=== PATIENT | male | born 1960 | race Caucasian/White ===

== ENCOUNTER 2017-07-26 05:31 | Inpatient (IN) | payer BC ==
[2017-07-23 13:53] LABS: BASOPHILS % (AUTO) 0.5 % (0-1); EOSINOPHILS # (AUTO) 0.1 X10'3 (0-0.9); EOSINOPHILS % (AUTO) 2.2 % (0-6); LYMPHOCYTES # (AUTO) 2.6 X10'3 (1.1-4.8); LYMPHOCYTES % (AUTO) 41.6 % (21-51); MEAN CORPUSCULAR HEMOGLOBIN 31.6 PG (27.0-31.0); MEAN CORPUSCULAR HGB CONC 35.2 % (33.0-36.5); MEAN CORPUSCULAR VOLUME 89.7 FL (78-98); MEAN PLATELET VOLUME 8.3 FL (7.4-10.4); MONOCYTES # (AUTO) 0.4 X10'3 (0-0.9); MONOCYTES % (AUTO) 6.8 % (2-12); NEUTROPHILS # (AUTO) 3.1 X10'3 (1.8-7.7); NEUTROPHILS % (AUTO) 48.9 % (42-75); PRE OP HEMATOCRIT 41.8 % (42.0-52.0); PRE OP HEMOGLOBIN 14.7 g/dL (14.0-17.9); PRE OP PLATELET COUNT 187 X10'3 (140-440); RED BLOOD COUNT 4.65 X10'6 (4.70-6.10); RED CELL DISTRIBUTION WIDTH 12.9 % (11.5-14.5)
[2017-07-23 13:55] LABS: CLARITY,URINE CLEAR (Clear); COLOR,URINE YELLOW (Yellow); GLUCOSE, URINE NEGATIVE (Neg); KETONES,URINE NEGATIVE (Neg); LEUKOCYTE ESTERASE ,URINE NEGATIVE (Neg); NITRITES, URINE NEGATIVE (Neg); OCCULT BLOOD,URINE TRACE-INTACT (Neg); PROTEIN,URINE NEGATIVE (Neg); UROBILINOGEN,URINE 0.2 E.U/dL (0.2-1.0)
[2017-07-23 13:58] LABS: UA COLLECTION TYPE VOIDED
[2017-07-23 14:01] LABS: HEMOGLOBIN A1C 5.8 % (4.5-6.2); PRE OP INR 0.9 INR; PRE OP PROTIME 9.8 SECONDS (9.0-12.0)
[2017-07-23 14:04] LABS: ALBUMIN 4.2 G/DL (3.4-5.0); ALBUMIN/GLOBULIN RATIO 1.2 (1.1-1.5); ALKALINE PHOSPHATASE 70 IU/L (46-116); BLOOD UREA NITROGEN 16 MG/DL (7-18); BUN/CREATININE RATIO 17.6 (5.4-32.0); CHLORIDE 105 MMOL/L (99-107); CREATININE 0.91 MG/DL (0.60-1.10); PRE OP ALT 44 U/L (30-65); PRE OP ANION GAP 7 (8-16); PRE OP AST 20 U/L (10-37); PRE OP BILIRUB, TOTAL 0.9 MG/DL (0.0-1.0); PRE OP GLUCOSE 108 MG/DL (70-104); PRE OP POTASSIUM 3.9 MMOL/L (3.4-5.1); PRE OP SODIUM 139 MMOL/L (135-145); TOTAL CARBON DIOXIDE 26.7 MMOL/L (24-32); TOTAL PROTEIN 7.7 G/DL (6.4-8.2); eGFR 86 ML/MIN
[2017-07-23 14:04] LABS: BACTERIA,URINE NONE SEEN /HPF (Neg); RBC,URINE 0-2 /HPF (0-2); WBC,URINE NONE SEEN /HPF (0-4)
[2017-07-23 14:05] LABS: MUCUS STRANDS MODERATE /LPF (Neg); SQUAMOUS EPITHELIAL CELL,UR NONE SEEN /LPF (FEW)
[2017-07-26] VITALS (24 sets, daily range): BP systolic 98–147; BP diastolic 40–72
[~2017-07-26] VITALS: Ht 182.9 cm; Wt 107.3 kg
[~2017-07-26 05:31] MED LIST: ATOR40TA PO; CHOL10002 PO; Cefazolin 2GM/100ML NS IVPB IV ONE; GLUC100017 PO; LORazepam 2 mg/ml vial IV PRN; MULT-1142 PO; [UNRECOGNIZED DRUG - CODE] PO; dextrose 50%-water 50ml dispensing syringe IV PRN; diazepam 5mg tablet PO PRN; famotidine 20mg tablet PO ONE; insulin Lispro (HumaLOG) vial - multi-dose SQ SCH; ringers solution, lacted 1,000 ML IV SCH; vancomycin inj 1,500 MG in normal saline 300ml IV soln IV ONE
[2017-07-26] MEDS ORDERED: LIDOcaine 1% (10mg/ml) 2ml vial ONE (05:48)
[2017-07-26] MEDS ORDERED: papaverine 30 mg/ml 2ml inj. IA ONE (07:00)
[2017-07-26] MEDS ORDERED: MIDAZolam 1mg/ml 10ml vial ONE (07:04)
[2017-07-26] MEDS ORDERED: SUFENTANIL CITRATE 50 MCG/ML 2ml ampule IV ONE (07:05)
[2017-07-26] MEDS: mupirocin 2% nasal ointment 1gm UD NS SCH ×3 (07:06→20:24)
[2017-07-26] MEDS ORDERED: phenylephrine 10mg/ml inj IV ONE ×2 (07:06→07:16)
[2017-07-26] MEDS ORDERED: LIDOcaine 2% (20mg/ml) 5ml vial ONE (07:06)
[2017-07-26] MEDS ORDERED: propofol inj 20 ML IV ONE (07:06)
[2017-07-26] MEDS ORDERED: pancuronium br 1mg/ml inj IV ONE (07:06)
[2017-07-26] MEDS ORDERED: sevoflurane 250ml liquid IH ONE (07:16)
[2017-07-26] MEDS ORDERED: protamine sulf. 10mg/ml inj. IV ONE (07:16)
[2017-07-26] MEDS ORDERED: aminocaproic acid 250 MG/1 ML inj. ONE (07:16)
[2017-07-26 08:15] LABS: ABG BASE EXCESS -2.6 mmol/L (-2.0-3.0); ABG HCO3 21.3 mmol/L (22.0-26.0); ABG OXYGEN SATURATION 99.4 % (95-98); ABG PCO2 34.1 mmHg (35.0-45.0); ABG PH 7.413 (7.350-7.450); ABG PO2 517.9 mmHg (60.0-100.0); CL (ABG) 106 mmol/L (99-107); FCOHb 0.3 % (0.5-1.5); FMetHb 0.3 % (0.3-1.12); FO2Hb 98.8 % (94-100); GLUCOSE (ABG) 120 mg/dl (70-105); IONIZED CA (ABG) 1.12 mmol/L (1.03-1.32); NA (ABG) 135 mmol/L (135-145); TOTAL HEMOGLOBIN 13.5 G/dl (14.0-18.0)
[2017-07-26 08:26] LABS: ACT @ 1.70 U 304 SEC (193-297); ACT @ 2.84 U 444 SEC (260-420); BASELINE ACT 149 SEC (101-148)
[2017-07-26 09:40] LABS: ABG BASE EXCESS 0.8 mmol/L (-2.0-3.0); ABG HCO3 25.9 mmol/L (22.0-26.0); ABG PH 7.397 (7.350-7.450); ABG PO2 214.4 mmHg (60.0-100.0); CL (ABG) 105 mmol/L (99-107); FCOHb 0.2 % (0.5-1.5); FMetHb 0.1 % (0.3-1.12); FO2Hb 98.7 % (94-100); GLUCOSE (ABG) 163 mg/dl (70-105); IONIZED CA (ABG) 1.02 mmol/L (1.03-1.32); K (ABG) 6.1 mmol/L (3.3-5.1); NA (ABG) 132 mmol/L (135-145); TOTAL HEMOGLOBIN 11.1 G/dl (14.0-18.0)
[2017-07-26 10:05] LABS: ABG BASE EXCESS VENOUS -1.1 mmol/L; ABG HCO3 VENOUS 24.6 mmol/L; ABG PCO2 VENOUS 45.3 mmHg; ABG PO2 VENOUS 46.1 mmHg; CL (ABG) 105 mmol/L (99-107); FCOHb VENOUS 0.2 %; FHHb VENOUS 18.7 %; FMetHb VENOUS 0.6 %; FO2Hb VENOUS 80.5 %; GLUCOSE (ABG) 171 mg/dl (70-105); IONIZED CA (ABG) 1.06 mmol/L (1.03-1.32); NA (ABG) 132 mmol/L (135-145); TOTAL HEMOGLOBIN 12.2 G/dl (14.0-18.0)
[2017-07-26 10:25] LABS: ABG BASE EXCESS -1.5 mmol/L (-2.0-3.0); ABG HCO3 22.5 mmol/L (22.0-26.0); ABG OXYGEN SATURATION 98.8 % (95-98); ABG PCO2 35.7 mmHg (35.0-45.0); ABG PH 7.418 (7.350-7.450); ABG PO2 211.6 mmHg (60.0-100.0); CL (ABG) 106 mmol/L (99-107); FMetHb 0.5 % (0.3-1.12); FO2Hb 98.3 % (94-100); GLUCOSE (ABG) 168 mg/dl (70-105); IONIZED CA (ABG) 1.03 mmol/L (1.03-1.32); K (ABG) 5.7 mmol/L (3.3-5.1); NA (ABG) 132 mmol/L (135-145); TOTAL HEMOGLOBIN 11.9 G/dl (14.0-18.0)
[2017-07-26 10:45] LABS: ABG BASE EXCESS 1.2 mmol/L (-2.0-3.0); ABG HCO3 26.5 mmol/L (22.0-26.0); ABG OXYGEN SATURATION 98.3 % (95-98); ABG PCO2 45.3 mmHg (35.0-45.0); ABG PH 7.385 (7.350-7.450); ABG PO2 175.4 mmHg (60.0-100.0); CL (ABG) 105 mmol/L (99-107); FCOHb 0.3 % (0.5-1.5); FMetHb 0.6 % (0.3-1.12); FO2Hb 97.4 % (94-100); GLUCOSE (ABG) 154 mg/dl (70-105); IONIZED CA (ABG) 1.39 mmol/L (1.03-1.32); K (ABG) 5.2 mmol/L (3.3-5.1); NA (ABG) 129 mmol/L (135-145); TOTAL HEMOGLOBIN 10.3 G/dl (14.0-18.0)
[2017-07-26 11:05] LABS: ABG HCO3 24.8 mmol/L (22.0-26.0); ABG PCO2 (T) 37.1 mmHg (35.0-48.0); ABG PH (T) 7.443 (7.350-7.450); ALLEN'S TEST Positive; FCOHb 0.7 % (0.5-1.5); FMetHb 0.2 % (0.3-1.12); FO2Hb 96.1 % (94-100); TOTAL HEMOGLOBIN 15.2 G/dl (14.0-18.0)
[2017-07-26 11:06] LABS: ABG HCO3 VENOUS 24.7 mmol/L; ABG PCO2 VENOUS 45.2 mmHg; ABG PO2 VENOUS 40.9 mmHg; CL (ABG) 106 mmol/L (99-107); FCOHb VENOUS 0.4 %; FHHb VENOUS 25.3 %; FMetHb VENOUS 0.5 %; FO2Hb VENOUS 73.8 %; GLUCOSE (ABG) 147 mg/dl (70-105); IONIZED CA (ABG) 1.21 mmol/L (1.03-1.32); K (ABG) 4.6 mmol/L (3.3-5.1); NA (ABG) 133 mmol/L (135-145); TOTAL HEMOGLOBIN 11.3 G/dl (14.0-18.0)
[2017-07-26 11:31] LABS: ABG HCO3 VENOUS 23.9 mmol/L; ABG PCO2 VENOUS 45.1 mmHg; ABG PO2 VENOUS 45.7 mmHg; CL (ABG) 108 mmol/L (99-107); FCOHb VENOUS 0.6 %; FHHb VENOUS 20.5 %; FMetHb VENOUS 0.6 %; FO2Hb VENOUS 78.3 %; GLUCOSE (ABG) 130 mg/dl (70-105); IONIZED CA (ABG) 1.18 mmol/L (1.03-1.32); K (ABG) 4.2 mmol/L (3.3-5.1); NA (ABG) 135 mmol/L (135-145); TOTAL HEMOGLOBIN 13.4 G/dl (14.0-18.0)
[2017-07-26] MEDS ORDERED: albumin (Human) 5% 250ml 250 ML IV ONE (11:33)
[2017-07-26] MEDS ORDERED: nitroGLYCERIN-Tridil 50MG/D5W 250 ML IV PRN (11:43)
[2017-07-26] MEDS ORDERED: niCARDipine/sod cl 20mg/200ml 200 ML IV PRN (11:43)
[2017-07-26] MEDS ORDERED: DOPamine 400mg/D5W 250ml 250 ML IV PRN (11:43)
[2017-07-26] MEDS ORDERED: sodium chloride 0.45% 1,000 ML IV SCH (11:43)
[2017-07-26] MEDS ORDERED: acetaminophen 325mg tablet PO PRN (11:45)
[2017-07-26] MEDS ORDERED: dextrose 50%-water 50ml dispensing syringe IV PRN (11:45)
[2017-07-26] MEDS ORDERED: sodium phosphate inj. 15 MMOL in dextrose 5%-water 150 ML IV PRN (11:45)
[2017-07-26] MEDS ORDERED: insulin regular, human inj. 100 UNITS in normal saline 100ml IV soln 100 ML IV SCH ×2 (11:45)
[2017-07-26] MEDS ORDERED: normal saline 250ml IV soln 250 ML IV PRN (11:45)
[2017-07-26] MEDS ORDERED: sodium phosphate inj. 30 MMOL in dextrose 5%-water 250 ML IV PRN (11:45)
[2017-07-26] MEDS ORDERED: ondansetron/PF 4mg/2ml inj IV PRN (11:45)
[2017-07-26] MEDS ORDERED: morphine 4 MG/ML inj SYRINge IV PRN (11:45)
[2017-07-26] MEDS ORDERED: potassium Cl 20mEq/100mL bag 100 ML IV PRN (11:45)
[2017-07-26] MEDS ORDERED: magnesium 2GM in 50ml NS 50 ML IV PRN (11:45)
[2017-07-26] MEDS ORDERED: HYDROcodone/acetaminophen 10/325mg tab PO PRN (11:45)
[2017-07-26] MEDS ORDERED: metoclopramide 5 mg/ml inj IV PRN (11:45)
[2017-07-26] MEDS ORDERED: magnesium hydroxide 30ml (MOM) UD suspension PO PRN (11:45)
[2017-07-26] MEDS ORDERED: Neutra Phos packet PO PRN (11:45)
[2017-07-26] MEDS ORDERED: magnesium 4gm in 100ml NS 100 ML IV PRN (11:45)
[2017-07-26 12:10] LABS: ABG BASE EXCESS -2.6 mmol/L (-2.0-3.0); ABG HCO3 23.2 mmol/L (22.0-26.0); ABG OXYGEN SATURATION 98.3 % (95-98); ABG PCO2 (T) 40.7 mmHg (35.0-48.0); ABG PH (T) 7.366 (7.350-7.450); ABG PO2 (T) 147.4 mmHg (83-108); FCOHb 0.3 % (0.5-1.5); FMetHb 0.2 % (0.3-1.12); FO2Hb 97.8 % (94-100); MINUTE VOLUME 9 L/min; PATIENT TEMPERATURE 35.4; PEEP 5 cm H2O; RESPIRATORY RATE 12 b/min; RESPIRATORY RATE (OBSERVED) 12 b/min; TIDAL VOLUME 650 mL; TOTAL HEMOGLOBIN 12.5 G/dl (14.0-18.0)
[2017-07-26 12:16] LABS: BASOPHILS % (AUTO) 0.2 % (0-1); EOSINOPHILS # (AUTO) 0.2 X10'3 (0-0.9); EOSINOPHILS % (AUTO) 1.8 % (0-6); HEMATOCRIT 33.6 % (42.0-52.0); HEMOGLOBIN 11.9 g/dl (14.0-17.9); MEAN CORPUSCULAR HGB CONC 35.3 % (33.0-36.5); MEAN CORPUSCULAR VOLUME 90.6 FL (78-98); MEAN PLATELET VOLUME 7.9 FL (7.4-10.4); MONOCYTES # (AUTO) 0.2 X10'3 (0-0.9); PLATELET COUNT 103 X10'3 (140-440); RED CELL DISTRIBUTION WIDTH 13.1 % (11.5-14.5); WHITE BLOOD COUNT 10.4 X10'3 (4.5-11.0)
[2017-07-26 12:21] LABS: ACTIVATED CLOTTING TIME 136 SEC (101-148)
[2017-07-26 12:21] LABS: ACTIVATED CLOTTING TIME 119 SEC (101-148)
[2017-07-26 12:27] LABS: INR 1.2 INR; PARTIAL THROMBOPLASTIN TIME 45 SECONDS (22-32); PROTHROMBIN TIME 11.9 SECONDS (9.0-12.0)
[2017-07-26 12:30] LABS: ALANINE AMINOTRANSFERASE 28 U/L (12-78); ALBUMIN 3.2 G/DL (3.4-5.0); ALKALINE PHOSPHATASE 45 IU/L (46-116); ASPARTATE AMINO TRANSFERASE 25 U/L (10-37); BLOOD UREA NITROGEN 13 MG/DL (7-18); CALCIUM 7.8 MG/DL (8.5-10.1); GLUCOSE 113 MG/DL (70-104); MAGNESIUM 3.1 MG/DL (1.5-2.4); PHOSPHORUS 2.1 MG/DL (2.3-4.5); eGFR 77 ML/MIN
[2017-07-26 12:36] LABS: ALBUMIN/GLOBULIN RATIO 1.7 (1.1-1.5); ANION GAP 8 (8-16); BILIRUBIN,TOTAL 0.9 MG/DL (0.1-1.0); CHLORIDE 109 MMOL/L (99-107); POTASSIUM 3.7 MMOL/L (3.5-5.1); SODIUM 142 MMOL/L (135-145); TOTAL CARBON DIOXIDE 25.4 MMOL/L (24-32); TOTAL PROTEIN 5.1 G/DL (6.4-8.2)
[2017-07-26] MEDS: insulin Lispro (HumaLOG) vial - multi-dose SQ SCH ×2 (12:48→17:38)
[2017-07-26] MEDS: morphine 4 MG/ML inj SYRINge IV PRN ×3 (13:14→18:36)
[2017-07-26] MEDS ORDERED: propofol 1000mg/100ml bottle 100 ML IV ONE (13:17)
[2017-07-26 13:30] LABS: BASOPHILS % (AUTO) 0.2 % (0-1); EOSINOPHILS # (AUTO) 0.2 X10'3 (0-0.9); EOSINOPHILS % (AUTO) 1.5 % (0-6); HEMATOCRIT 29.5 % (42.0-52.0); HEMOGLOBIN 10.3 g/dl (14.0-17.9); LYMPHOCYTES # (AUTO) 1.8 X10'3 (1.1-4.8); LYMPHOCYTES % (AUTO) 12.2 % (21-51); MEAN CORPUSCULAR HEMOGLOBIN 31.8 PG (27.0-31.0); MEAN CORPUSCULAR VOLUME 90.7 FL (78-98); MEAN PLATELET VOLUME 7.8 FL (7.4-10.4); MONOCYTES # (AUTO) 0.4 X10'3 (0-0.9); MONOCYTES % (AUTO) 2.5 % (2-12); NEUTROPHILS # (AUTO) 12.1 X10'3 (1.8-7.7); NEUTROPHILS % (AUTO) 83.6 % (42-75); PLATELET COUNT 134 X10'3 (140-440); RED BLOOD COUNT 3.25 X10'6 (4.70-6.10); RED CELL DISTRIBUTION WIDTH 13.2 % (11.5-14.5); WHITE BLOOD COUNT 14.4 X10'3 (4.5-11.0)
[2017-07-26 13:45] LABS: PARTIAL THROMBOPLASTIN TIME 37 SECONDS (22-32); PROTHROMBIN TIME 10.7 SECONDS (9.0-12.0)
[2017-07-26] MEDS: albumin (Human) 5% 250ml 250 ML IV PRN ×3 (13:55→16:43)
[2017-07-26] MEDS: insulin regular, human 100 UNITS in normal saline 100ml IV soln 99 ML IV SCH ×4 (13:57→21:07)
[2017-07-26] MEDS: ketorolac tromethamine 15mg/ml inj. IV SCH ×2 (14:00→20:00)
[2017-07-26] MEDS: potassium Cl 20mEq/100mL bag 100 ML IV PRN ×4 (14:08→18:57)
[2017-07-26] MEDS ORDERED: NORepinephrine 8mg/ 250ml NS 250 ML IV SCH (15:10)
[2017-07-26 16:16] LABS: ABG BASE EXCESS -5.6 mmol/L (-2.0-3.0); ABG HCO3 20.8 mmol/L (22.0-26.0); ABG OXYGEN SATURATION 97.8 % (95-98); ABG PCO2 (T) 44.3 mmHg (35.0-48.0); ABG PH (T) 7.289 (7.350-7.450); ABG PO2 (T) 143.8 mmHg (83-108); FCOHb 0.2 % (0.5-1.5); FMetHb 0.3 % (0.3-1.12); FO2Hb 97.3 % (94-100); MINUTE VOLUME 9 L/min; PATIENT TEMPERATURE 36.9; PEEP 5 cm H2O; TOTAL HEMOGLOBIN 10.2 G/dl (14.0-18.0)
[2017-07-26] MEDS: ceFAZolin inj. 1,000 MG in normal saline 100ml IV soln 100 ML IV SCH (16:44)
[2017-07-26 17:06] LABS: ABG BASE EXCESS -5.1 mmol/L (-2.0-3.0); ABG HCO3 18.7 mmol/L (22.0-26.0); ABG OXYGEN SATURATION 97.9 % (95-98); ABG PCO2 (T) 30.3 mmHg (35.0-48.0); ABG PH (T) 7.409 (7.350-7.450); ABG PO2 (T) 139.9 mmHg (83-108); FCOHb 0.2 % (0.5-1.5); FMetHb 0.1 % (0.3-1.12); FO2Hb 97.6 % (94-100); MINUTE VOLUME 13 L/min; PEEP 5 cm H2O; TOTAL HEMOGLOBIN 9.6 G/dl (14.0-18.0)
[2017-07-26 17:21] LABS: BASOPHILS % (AUTO) 0 % (0-1); EOSINOPHILS % (AUTO) 0 % (0-6); HEMATOCRIT 25.7 % (42.0-52.0); LYMPHOCYTES # (AUTO) 0.6 X10'3 (1.1-4.8); LYMPHOCYTES % (AUTO) 4.6 % (21-51); MEAN CORPUSCULAR HEMOGLOBIN 31.6 PG (27.0-31.0); MEAN CORPUSCULAR HGB CONC 34.9 % (33.0-36.5); MEAN CORPUSCULAR VOLUME 90.5 FL (78-98); MEAN PLATELET VOLUME 7.9 FL (7.4-10.4); MONOCYTES # (AUTO) 0.2 X10'3 (0-0.9); NEUTROPHILS # (AUTO) 11.2 X10'3 (1.8-7.7); NEUTROPHILS % (AUTO) 93.4 % (42-75); PLATELET COUNT 124 X10'3 (140-440); RED BLOOD COUNT 2.84 X10'6 (4.70-6.10); RED CELL DISTRIBUTION WIDTH 12.9 % (11.5-14.5)
[2017-07-26] MEDS ORDERED: sodium bicarbonate (8.4%) 1 mEq/ml syringe IV ONE (17:25)
[2017-07-26 17:35] LABS: ALBUMIN 3.6 G/DL (3.4-5.0); ANION GAP 13 (8-16); BLOOD UREA NITROGEN 14 MG/DL (7-18); BUN/CREATININE RATIO 12.3 (5.4-32.0); CALCIUM 7.7 MG/DL (8.5-10.1); CHLORIDE 111 MMOL/L (99-107); CREATININE 1.14 MG/DL (0.60-1.10); GLUCOSE 153 MG/DL (70-104); POTASSIUM 3.7 MMOL/L (3.5-5.1); SODIUM 145 MMOL/L (135-145); TOTAL CARBON DIOXIDE 20.6 MMOL/L (24-32); eGFR 66 ML/MIN
[2017-07-26 17:55] LABS: MAGNESIUM 2.3 MG/DL (1.5-2.4)
[2017-07-26] MEDS: docusate sod 100mg capsule PO SCH (20:00)
[2017-07-26] MEDS: vancomycin/NS 1 GM ADD-VANTAGE 250 ML IV SCH (20:24)
[2017-07-26] MEDS: vitamin D (cholecalciferol) 1,000 unit tablet PO SCH (21:00)
[2017-07-27] VITALS (24 sets, daily range): BP systolic 95–144; BP diastolic 41–68
[2017-07-27] MEDS: ceFAZolin inj. 1,000 MG in normal saline 100ml IV soln 100 ML IV SCH ×3 (00:20→16:10)
[2017-07-27] MEDS: insulin regular, human 100 UNITS in normal saline 100ml IV soln 99 ML IV SCH ×8 (00:26→07:20)
[2017-07-27] MEDS: potassium Cl 20mEq/100mL bag 100 ML IV PRN ×2 (00:29→05:30)
[2017-07-27] MEDS: ketorolac tromethamine 15mg/ml inj. IV SCH ×2 (01:09→07:28)
[2017-07-27 04:26] LABS: BASOPHILS % (AUTO) 0 % (0-1); EOSINOPHILS % (AUTO) 0 % (0-6); HEMATOCRIT 23.4 % (42.0-52.0); HEMOGLOBIN 8.3 g/dl (14.0-17.9); LYMPHOCYTES # (AUTO) 0.7 X10'3 (1.1-4.8); LYMPHOCYTES % (AUTO) 5.6 % (21-51); MEAN CORPUSCULAR HEMOGLOBIN 31.9 PG (27.0-31.0); MEAN CORPUSCULAR HGB CONC 35.4 % (33.0-36.5); MEAN CORPUSCULAR VOLUME 90.3 FL (78-98); MONOCYTES # (AUTO) 0.5 X10'3 (0-0.9); MONOCYTES % (AUTO) 4.1 % (2-12); NEUTROPHILS # (AUTO) 10.7 X10'3 (1.8-7.7); NEUTROPHILS % (AUTO) 90.3 % (42-75); PLATELET COUNT 105 X10'3 (140-440); RED BLOOD COUNT 2.59 X10'6 (4.70-6.10); RED CELL DISTRIBUTION WIDTH 13.2 % (11.5-14.5); WHITE BLOOD COUNT 11.8 X10'3 (4.5-11.0)
[2017-07-27 04:37] LABS: PARTIAL THROMBOPLASTIN TIME 25 SECONDS (22-32)
[2017-07-27 04:40] LABS: ALANINE AMINOTRANSFERASE 28 U/L (12-78); ALBUMIN 3.4 G/DL (3.4-5.0); ALBUMIN/GLOBULIN RATIO 1.5 (1.1-1.5); ALKALINE PHOSPHATASE 32 IU/L (46-116); ANION GAP 10 (8-16); ASPARTATE AMINO TRANSFERASE 43 U/L (10-37); BILIRUBIN,TOTAL 0.7 MG/DL (0.1-1.0); BLOOD UREA NITROGEN 15 MG/DL (7-18); BUN/CREATININE RATIO 15.5 (5.4-32.0); CALCIUM 7.9 MG/DL (8.5-10.1); CHLORIDE 109 MMOL/L (99-107); CREATININE 0.97 MG/DL (0.60-1.10); GLUCOSE 129 MG/DL (70-104); MAGNESIUM 2.5 MG/DL (1.5-2.4); PHOSPHORUS 3.8 MG/DL (2.3-4.5); POTASSIUM 4.1 MMOL/L (3.5-5.1); SODIUM 143 MMOL/L (135-145); TOTAL CARBON DIOXIDE 24.3 MMOL/L (24-32); TOTAL PROTEIN 5.6 G/DL (6.4-8.2); eGFR 80 ML/MIN
[2017-07-27] MEDS: pantoprazole 40mg Tablet.DR PO SCH (07:27)
[2017-07-27] MEDS: multivitamins, therapeutics tablet PO SCH (07:27)
[2017-07-27] MEDS: aspirin 325mg tablet, delayed-release (Ecotrin) PO SCH (07:27)
[2017-07-27] MEDS: docusate sod 100mg capsule PO SCH ×2 (07:27→19:05)
[2017-07-27] MEDS: mupirocin 2% nasal ointment 1gm UD NS SCH ×2 (07:28→19:05)
[2017-07-27] MEDS: metoprolol tartrate 12.5mg (1/2 tablet) PO SCH ×2 (07:29→20:00)
[2017-07-27] MEDS ORDERED: atorvastatin 10mg tablet PO SCH (08:00)
[2017-07-27] MEDS: vancomycin/NS 1 GM ADD-VANTAGE 250 ML IV SCH ×2 (08:25→19:05)
[2017-07-27] MEDS: insulin Lispro (HumaLOG) vial - multi-dose SQ SCH (08:53)
[2017-07-27] MEDS: HYDROcodone/acetaminophen 10/325mg tab PO PRN ×2 (09:37→15:17)
[2017-07-27] MEDS ORDERED: glucagon, human recombinant 1mg kit SUBCUT PRN (17:35)
[2017-07-27] MEDS ORDERED: insulin Lispro (HumaLOG) vial - multi-dose SQ SCH (17:35)
[2017-07-27] MEDS ORDERED: dextrose ORAL solution 15 GM/59 ML bottle PO PRN ×2 (17:35)
[2017-07-27] MEDS ORDERED: MESSAGE TO PHARMACY PO ONE (17:35)
[2017-07-27] MEDS ORDERED: dextrose 50%-water 50ml dispensing syringe IV PRN ×2 (17:35)
[2017-07-27] MEDS: lactobacillus rhamnosus 10,000 MMU CELLS/CAPSULE PO SCH (19:05)
[2017-07-27] MEDS ORDERED: insulin glargine (Lantus) pen - multi-dose SQ SCH (21:00)
[2017-07-27] MEDS: vitamin D (cholecalciferol) 1,000 unit tablet PO SCH (21:37)
[2017-07-28] VITALS (24 sets, daily range): BP systolic 90–128; BP diastolic 52–80
[2017-07-28] MEDS: ceFAZolin inj. 1,000 MG in normal saline 100ml IV soln 100 ML IV SCH ×2
[2017-07-28 04:32] LABS: BASOPHILS % (AUTO) 0.1 % (0-1); EOSINOPHILS % (AUTO) 0 % (0-6); HEMATOCRIT 24.2 % (42.0-52.0); HEMOGLOBIN 8.5 g/dl (14.0-17.9); LYMPHOCYTES # (AUTO) 1.2 X10'3 (1.1-4.8); LYMPHOCYTES % (AUTO) 9.2 % (21-51); MEAN CORPUSCULAR HEMOGLOBIN 32.3 PG (27.0-31.0); MEAN CORPUSCULAR HGB CONC 35.1 % (33.0-36.5); MEAN CORPUSCULAR VOLUME 92.1 FL (78-98); MEAN PLATELET VOLUME 8.3 FL (7.4-10.4); MONOCYTES # (AUTO) 0.9 X10'3 (0-0.9); MONOCYTES % (AUTO) 7.2 % (2-12); NEUTROPHILS # (AUTO) 10.9 X10'3 (1.8-7.7); NEUTROPHILS % (AUTO) 83.5 % (42-75); PLATELET COUNT 92 X10'3 (140-440); RED BLOOD COUNT 2.63 X10'6 (4.70-6.10)
[2017-07-28 04:48] LABS: ALBUMIN 3.5 G/DL (3.4-5.0); ANION GAP 7 (8-16); BLOOD UREA NITROGEN 18 MG/DL (7-18); BUN/CREATININE RATIO 20.2 (5.4-32.0); CALCIUM 8.1 MG/DL (8.5-10.1); CHLORIDE 104 MMOL/L (99-107); CREATININE 0.89 MG/DL (0.60-1.10); GLUCOSE 128 MG/DL (70-104); MAGNESIUM 2.3 MG/DL (1.5-2.4); PHOSPHORUS 2.9 MG/DL (2.3-4.5); POTASSIUM 4.4 MMOL/L (3.5-5.1); SODIUM 139 MMOL/L (135-145); TOTAL CARBON DIOXIDE 28.1 MMOL/L (24-32); eGFR 88 ML/MIN
[2017-07-28] MEDS: potassium Cl 20mEq/100mL bag 100 ML IV PRN (05:05)
[2017-07-28] MEDS: HYDROcodone/acetaminophen 10/325mg tab PO PRN ×2 (05:55→15:50)
[2017-07-28] MEDS ORDERED: furosemide 40mg/4ml inj IV ONE (06:40)
[2017-07-28] MEDS ORDERED: potassium Cl 40MEQ/NS 500ml 500 ML IV PRN ×2 (06:45)
[2017-07-28] MEDS ORDERED: potassium Cl 20 mEq SR tablet PO PRN ×2 (06:45)
[2017-07-28] MEDS ORDERED: magnesium 4gm in 100ml NS 100 ML IV PRN (06:45)
[2017-07-28] MEDS ORDERED: magnesium 2GM in 50ml NS 50 ML IV PRN (06:45)
[2017-07-28] MEDS ORDERED: magnesium Cl slow-release 64mg tablet PO PRN (06:45)
[2017-07-28] MEDS: pantoprazole 40mg Tablet.DR PO SCH (07:56)
[2017-07-28] MEDS: aspirin 325mg tablet, delayed-release (Ecotrin) PO SCH (07:56)
[2017-07-28] MEDS: docusate sod 100mg capsule PO SCH ×2 (07:56→21:05)
[2017-07-28] MEDS: lactobacillus rhamnosus 10,000 MMU CELLS/CAPSULE PO SCH ×2 (07:56→20:00)
[2017-07-28] MEDS: multivitamins, therapeutics tablet PO SCH (07:56)
[2017-07-28] MEDS: metoprolol tartrate 12.5mg (1/2 tablet) PO SCH ×2 (08:00→20:00)
[2017-07-28] MEDS: magnesium Cl slow-release 64mg tablet PO SCH ×2 (08:00→21:05)
[2017-07-28] MEDS ORDERED: K and/or MAG REPLACEMENT MC SCH (08:00)
[2017-07-28] MEDS: potassium Cl 20 mEq SR tablet PO SCH ×2 (08:00→21:06)
[2017-07-28] MEDS ORDERED: ceFAZolin/D5W- 1GM premix 50 ML IV SCH ×2 (16:00)
[2017-07-28] MEDS: vitamin D (cholecalciferol) 1,000 unit tablet PO SCH (21:05)
[2017-07-28] MEDS: atorvastatin 20mg tablet PO SCH (21:06)
[2017-07-29] VITALS (16 sets, daily range): BP systolic 86–125; BP diastolic 55–76
[2017-07-29] MEDS: HYDROcodone/acetaminophen 10/325mg tab PO PRN (03:48)
[2017-07-29 04:07] LABS: BASOPHILS % (AUTO) 0.1 % (0-1); EOSINOPHILS # (AUTO) 0.1 X10'3 (0-0.9); EOSINOPHILS % (AUTO) 0.7 % (0-6); HEMATOCRIT 22.6 % (42.0-52.0); HEMOGLOBIN 8.1 g/dl (14.0-17.9); LYMPHOCYTES # (AUTO) 1.7 X10'3 (1.1-4.8); LYMPHOCYTES % (AUTO) 17.3 % (21-51); MEAN CORPUSCULAR HEMOGLOBIN 32.5 PG (27.0-31.0); MEAN CORPUSCULAR HGB CONC 35.5 % (33.0-36.5); MEAN CORPUSCULAR VOLUME 91.4 FL (78-98); MEAN PLATELET VOLUME 8.6 FL (7.4-10.4); MONOCYTES # (AUTO) 0.8 X10'3 (0-0.9); MONOCYTES % (AUTO) 8.2 % (2-12); NEUTROPHILS # (AUTO) 7.4 X10'3 (1.8-7.7); NEUTROPHILS % (AUTO) 73.7 % (42-75); PLATELET COUNT 93 X10'3 (140-440); RED BLOOD COUNT 2.48 X10'6 (4.70-6.10); WHITE BLOOD COUNT 10.1 X10'3 (4.5-11.0)
[2017-07-29 04:18] LABS: ALBUMIN 3.2 G/DL (3.4-5.0); ANION GAP 4 (8-16); BLOOD UREA NITROGEN 16 MG/DL (7-18); BUN/CREATININE RATIO 18.8 (5.4-32.0); CALCIUM 8.3 MG/DL (8.5-10.1); CHLORIDE 104 MMOL/L (99-107); CREATININE 0.85 MG/DL (0.60-1.10); GLUCOSE 130 MG/DL (70-104); MAGNESIUM 1.9 MG/DL (1.5-2.4); SODIUM 139 MMOL/L (135-145); TOTAL CARBON DIOXIDE 30.9 MMOL/L (24-32); eGFR > 90 ML/MIN
[2017-07-29] MEDS: pantoprazole 40mg Tablet.DR PO SCH (07:57)
[2017-07-29] MEDS: potassium Cl 20 mEq SR tablet PO SCH ×2 (07:57→19:44)
[2017-07-29] MEDS: magnesium Cl slow-release 64mg tablet PO SCH ×2 (07:58→19:42)
[2017-07-29] MEDS: lactobacillus rhamnosus 10,000 MMU CELLS/CAPSULE PO SCH ×2 (07:58→19:43)
[2017-07-29] MEDS: docusate sod 100mg capsule PO SCH ×2 (07:58→19:43)
[2017-07-29] MEDS: aspirin 325mg tablet, delayed-release (Ecotrin) PO SCH (07:58)
[2017-07-29] MEDS: multivitamins, therapeutics tablet PO SCH (07:58)
[2017-07-29] MEDS ORDERED: magnesium 2GM in 50ml NS 50 ML IV PRN (08:25)
[2017-07-29] MEDS ORDERED: magnesium 4gm in 100ml NS 100 ML IV PRN (08:25)
[2017-07-29] MEDS ORDERED: potassium Cl 20 mEq SR tablet PO PRN ×2 (08:25)
[2017-07-29] MEDS ORDERED: magnesium Cl slow-release 64mg tablet PO PRN (08:25)
[2017-07-29] MEDS ORDERED: potassium Cl 40MEQ/NS 500ml 500 ML IV PRN ×2 (08:25)
[2017-07-29] MEDS: atorvastatin 20mg tablet PO SCH (19:41)
[2017-07-29] MEDS: vitamin D (cholecalciferol) 1,000 unit tablet PO SCH (19:42)
[2017-07-30 03:00] VITALS: BP 101/50
[2017-07-30 05:22] LABS: BASOPHILS % (AUTO) 0.4 % (0-1); EOSINOPHILS # (AUTO) 0.1 X10'3 (0-0.9); EOSINOPHILS % (AUTO) 1.7 % (0-6); HEMATOCRIT 24.2 % (42.0-52.0); HEMOGLOBIN 8.4 g/dl (14.0-17.9); LYMPHOCYTES # (AUTO) 2.3 X10'3 (1.1-4.8); LYMPHOCYTES % (AUTO) 27.1 % (21-51); MEAN CORPUSCULAR HEMOGLOBIN 31.7 PG (27.0-31.0); MEAN CORPUSCULAR VOLUME 90.6 FL (78-98); MEAN PLATELET VOLUME 7.7 FL (7.4-10.4); MONOCYTES # (AUTO) 0.7 X10'3 (0-0.9); MONOCYTES % (AUTO) 7.8 % (2-12); NEUTROPHILS # (AUTO) 5.3 X10'3 (1.8-7.7); PLATELET COUNT 124 X10'3 (140-440); RED BLOOD COUNT 2.67 X10'6 (4.70-6.10); RED CELL DISTRIBUTION WIDTH 12.8 % (11.5-14.5); WHITE BLOOD COUNT 8.4 X10'3 (4.5-11.0)
[2017-07-30] MEDS: HYDROcodone/acetaminophen 10/325mg tab PO PRN (05:40)
[2017-07-30 06:00] VITALS: BP 93/49
[2017-07-30 06:06] LABS: ALBUMIN 3.1 G/DL (3.4-5.0); ANION GAP 9 (8-16); BLOOD UREA NITROGEN 17 MG/DL (7-18); BUN/CREATININE RATIO 17.7 (5.4-32.0); CALCIUM 8.6 MG/DL (8.5-10.1); CHLORIDE 104 MMOL/L (99-107); CREATININE 0.96 MG/DL (0.60-1.10); GLUCOSE 147 MG/DL (70-104); MAGNESIUM 2.1 MG/DL (1.5-2.4); POTASSIUM 4.4 MMOL/L (3.5-5.1); SODIUM 142 MMOL/L (135-145); TOTAL CARBON DIOXIDE 28.9 MMOL/L (24-32); eGFR 81 ML/MIN
[2017-07-30] MEDS: magnesium Cl slow-release 64mg tablet PO SCH (06:58)
[2017-07-30] MEDS: potassium Cl 20 mEq SR tablet PO SCH (06:58)
[2017-07-30] MEDS: aspirin 325mg tablet, delayed-release (Ecotrin) PO SCH (07:38)
[2017-07-30] MEDS: pantoprazole 40mg Tablet.DR PO SCH (07:38)
[2017-07-30] MEDS: lactobacillus rhamnosus 10,000 MMU CELLS/CAPSULE PO SCH (07:38)
[2017-07-30] MEDS: docusate sod 100mg capsule PO SCH (07:38)
[2017-07-30] MEDS: multivitamins, therapeutics tablet PO SCH (07:38)
[2017-07-30] MEDS ORDERED: K and/or MAG REPLACEMENT MC SCH (08:00)
[2017-07-30] MEDS ORDERED: ASPI-41 PO (09:45)
[2017-07-30] MEDS ORDERED: COL100C PO (09:45)
[2017-07-30] MEDS ORDERED: HYDR-3972 PO (09:45)
[2017-07-30 11:00] VITALS: BP_SYST 103; BP_SYST 98; BP_DIAS 59; BP_DIAS 64
== END 2017-07-30 12:20 | disposition home or self-care (01) | DRG 221 ==
LOC: PAS IN 05:31 → EDSTATUS 07:30 → CICU 2S 11:46 → PCU 3S 07-29 12:00
PROVIDERS: ADMIT Thoracic Surgery (Cardiothoracic Vascular Surgery); ATTEND Thoracic Surgery (Cardiothoracic Vascular Surgery)
PROC: 02RF08Z Replacement of Aortic Valve with Zooplastic Tissue, Open Approach (ICD-10-PCS; 2017-07-26)
PROC: 05HM33Z Insertion of Infusion Device into Right Internal Jugular Vein, Percutaneous Approach (ICD-10-PCS; 2017-07-26)
PROC: B543ZZA Ultrasonography of Right Jugular Veins, Guidance (ICD-10-PCS; 2017-07-26)
PROC: B24BZZ4 Ultrasonography of Heart with Aorta, Transesophageal (ICD-10-PCS; 2017-07-26)
PROC: 5A1221Z Performance of Cardiac Output, Continuous (ICD-10-PCS; 2017-07-26)
PROC: 30233M1 Transfusion of Nonautologous Plasma Cryoprecipitate into Peripheral Vein, Percutaneous Approach (ICD-10-PCS; 2017-07-26)
PROC: 30233R1 Transfusion of Nonautologous Platelets into Peripheral Vein, Percutaneous Approach (ICD-10-PCS; 2017-07-26)
PROC: 02100Z9 Bypass Coronary Artery, One Artery from Left Internal Mammary, Open Approach (ICD-10-PCS; principal; 2017-07-26 07:16)
DX: I35.0 Nonrheumatic aortic (valve) stenosis (principal); I25.10 Atherosclerotic heart disease of native coronary artery without angina pectoris; M19.90 Unspecified osteoarthritis, unspecified site; Q67.6 Pectus excavatum; Z80.42 Family history of malignant neoplasm of prostate; Z83.3 Family history of diabetes mellitus
CPT/HCPCS: 0232T; 93312; 93325; Z7506; Z7508; 36415; 36600; 71045; 71046; 80048; 80053; 81001; 82330; 82435; 82803; 82947; 82948; 83036; 83735; 84100; 84132; 84295; 85018; 85025; 85347; 85384; 85610; 85730; 86885; 86900; 86901; 86920; 87070; 93005; 93880; 93970; 94002; 94010; 94668; 94760; 97110; 97116; 97161; A6213; A6258; A6402; A6449; A7000; A7048; J0690; J1644; J1815; J1885; J1940; J2001; J2060; J2250; J2270; J2370; J2405; J2440; J2704; J2720; J3370; J3475; J3480; J3490; J7030; J7060; J7120; P9012; P9035; P9045